=== PATIENT | female | born 2000 | race Caucasian/White ===

== ENCOUNTER 2022-09-28 13:40 | Emergency (ER) | payer SELFPAY ==
--- NOTE | ~2022-09-28 | CT_ITS ---
EXAMINATION: CTA chest PE protocol DATE: 09/28/2022 17:43 INDICATION: Midsternal chest pain. TECHNIQUE: Computed tomography angiography (CTA) of the chest was performed with 85 mL Omnipaque-350 intravenous contrast timed to evaluate the pulmonary arteries. Coronal maximum intensity projection 3 D-reconstructions were created by the technologist. Automated exposure control and iterative reconstr uction technique were employed. The dose-length product was 132.97 mGy-cm. COMPARISON: Chest 2 views 09/28/2022 FINDINGS: There is no pneumonia or pleural effusion. The heart size is normal. No pericardial effusio n. There is no pulmonary embolus. There are Schmorl's nodes in the mid thoracic spine. IMPRESSION: 1. No pulmonary embolus. Reviewed, dictated and finalized at location E. IMPRESSION: 1. No pulmonary embolus.
--- NOTE | ~2022-09-28 | XR_ITS ---
EXAMINATION: XR chest 2V DATE: 09/28/2022 14:08 INDICATION: Chest pain radiating into the neck TECHNIQUE: PA and lateral views of the chest were obtained. COMPARISON: None FINDINGS: The lungs are clear with no focal airspace opacities, pulmonary edema, pleural effusion or pneumothor ax. The cardiomediastinal silhouette is normal. Mild thoracic levocurvature. IMPRESSION: 1. No acute cardiopulmonary disease. Reviewed, dictated and finalized at location A.
[2022-09-28 13:50] VITALS: BP 110/66; PULSE 65; RESP 16; TEMP 36.6; O2SAT 99
--- NOTE | 2022-09-28 13:55 | ECG_ITS ---
Measurements Intervals [place] Rate: 53 P: 50 OK: 95 QRS: 59 QRSD: 86 T: 68 QT: 405 QTc: 382 Interpretive Statements SINUS BRADYCARDIA WITH SHORT OK INTERVAL NO PREVIOUS ECG AVAILABLE FOR COMPARISON Electronically Signed On 09-28-2022 16:03:48 CDT by Tomas Ingram M.D.
[2022-09-28 14:50] VITALS: BP 122/69; PULSE 63; PULSE 65; RESP 17; O2SAT 100
[2022-09-28 14:56] LABS: Basophils Absolute Auto 0.1 K/mm3 (0.0-0.1); Basophils Percent Auto 1.4 % (0.2-1.2); Eosinophils Absolute Auto 0.1 K/mm3 (0-0.3); Eosinophils Percent Auto 0.8 % (0-4.4); Hematocrit 42.6 % (37.0-47.0); Hemoglobin 14.3 g/dL (12.0-15.0); Immature Granulocyte Absolute 0.01 K/mm3 (0.00-0.031); Immature Granulocyte Percent A 0.2 % (0-0.5); Lymphocytes Absolute Auto 1.69 K/mm3 (0.9-3.2); Lymphocytes Percent Auto 26.5 % (18.3-44.2); Mean Corpuscular HGB Conc 33.6 g/dl (32-36); Mean Corpuscular Volume 95.3 fl (80-100); Mean Platelet Volume 11.4 fl (7.4-10.4); Monocytes Absolute Auto 0.5 K/mm3 (0.1-0.6); Monocytes Percent Auto 7.8 % (2.6-8.5); Neutrophils Percent Auto 63.3 % (45.5-73.1); Platelet Count Result 228 k/mm3 (150-375); Red Blood Count 4.47 M/mm3 (4.2-5.4); Red Cell Distribution Width 11.9 % (11.5-14.5); White Blood Count 6.4 K/mm3 (4.5-10.0)
[2022-09-28 15:06] LABS: INR 1.1; Prothrombin Time 14.2 Seconds (11.1-14.7)
[2022-09-28 15:07] LABS: Alanine Aminotransferase 16 U/L (6-35); Alkaline Phosphatase 64 U/L (38-126); Anion Gap 7 mmol/L (8-16); Aspartate Amino Transferase 26 U/L (14-36); Bilirubin,Total 0.5 mg/dL (0.2-1.3); Blood Urea Nitrogen 8 mg/dL (7-17); Calcium 9.3 mg/dL (8.4-10.2); Carbon Dioxide 27 mmol/L (22-30); Chloride 105 mmol/L (98-107); Estimated CRCL calculation 80 ml/min; Estimated Glomerular Filt Rate > 60; Glucose 92 mg/dL (65-110); Lipase 28 U/L (23-300); Partial Thromboplastin Time 30.5 SECONDS (22.3-36.8); Sodium 139 mmol/L (137-145)
[2022-09-28 15:18] LABS: Troponin I < 0.012 ng/mL (0.000-0.034)
--- NOTE | 2022-09-28 15:31 | ED.CHESTPAIN ---
HPI - Chest Pain General Chief Complaint: Chest Pain Stated Complaint: chest pain Time Seen by Provider: 09/28/22 14:46 History of Present Illness HPI narrative: 22-year-old female presented to the emergency department for evaluation of chest pain. Patient states she was at work this morning when she had onset of substernal chest pain that did radiate to her back. Patient states the pain was worsened with movement. Patient denies any prior history of coronary disease. Patient denies any personal history of pulmonary embolism. Patient states the pain was persistent for approximately 45 minutes and then resolved. Upon arrival to the ED patient states she is no longer having any chest pain. Patient denies any associated shortness of breath. Patient denies any leg swelling or tenderness. Related Data Allergies Allergy/AdvReac Type Severity Reaction Status Date / Time No Known Allergies Allergy Verified 09/28/22 14:51 Review of Systems Review of Systems: All systems reviewed & are unremarkable except as noted in HPI and below Exam Narrative: APPEARANCE: Well appearing, no pain, no distress, well-nourished. HEAD: normocephalic, atraumatic. EYES: PERRLA/EOMI, conjunctivae clear. NOSE: Normal no drainage NECK: Supple. No adenopathy, no masses. RESPIRATORY: Airway patent, respirations nonlabored. Clear to auscultation bilaterally, no rales, rhonchi, wheezing. CARDIOVASCULAR: Regular rate and rhythm without murmurs rubs or gallops. Reproducible sternal tenderness to palpation ABDOMINAL: Soft, nontender, nondistended, normal bowel sounds MUSCULOSKELETAL: Moves all extremities. Strength/ROM intact, No edema, No calf tenderness. NEURO: Alert. Cranial nerves II through XII intact. SKIN: Warm, dry. Normal Color Course Course Emergency Course: 22-year-old female presented the ED for evaluation of substernal chest pain. Patient is afebrile with no leukocytosis. Patient's CMP is similar to her baseline. Patient's troponin is negative lipase is negative. D-dimer is pending. Chest x-ray shows no acute cardiopulmonary abnormality. EKG shows normal sinus rhythm. Patient is delta troponin was negative. Patient's D-dimer was elevated at 0.62. CTA PE to rule out pulmonary embolism showed no evidence of PE. Patient remained pain-free in the emergency department. Patient and guest were updated on the results of the work-up. All question concerns were addressed. Patient was encouraged of close follow-up with her primary care physician. Vital Signs Vital signs: Vital Signs Temperature 98 F 09/28/22 13:50 Pulse Rate 65 09/28/22 13:50 Respiratory Rate 16 09/28/22 13:50 Blood Pressure 110/66 09/28/22 13:50 Pulse Oximetry 99 09/28/22 13:50 Oxygen Delivery Room Air 09/28/22 13:50 Temperature 98 F 09/28/22 13:50 Pulse Rate 67 09/28/22 17:56 Respiratory Rate 12 09/28/22 17:56 Blood Pressure 123/80 09/28/22 17:56 Pulse Oximetry 100 09/28/22 17:56 Oxygen Delivery Room Air 09/28/22 13:50 MDM - Chest Pain Differential Diagnosis Differential diagnosis: Likely pneumothorax, stable angina, atypical chest pain, costochondritis, chest pain and other (Pulmonary embolism, pneumonia) Lab Data Attestation: I reviewed the patient's lab results. 09/28/22 14:46 09/28/22 14:46 Labs: Lab Results 09/28/22 09/28/22 Range/Units 14:46 17:04 WBC 6.4 (4.5-10.0) K/mm3 RBC 4.47 (4.2-5.4) M/mm3 Hgb 14.3 (12.0-15.0) g/dL Hct 42.6 (37.0-47.0) % MCV 95.3 (80-100) fl MCH 32.0 (26-34) pg MCHC 33.6 (32-36) g/dl RDW 11.9 (11.5-14.5) % Plt Count 228 (150-375) k/mm3 MPV 11.4 H (7.4-10.4) fl Immature Gran % (Auto) 0.2 (0-0.5) % Neut % (Auto) 63.3 (45.5-73.1) % Lymph % (Auto) 26.5 (18.3-44.2) % [place] % (Auto) 7.8 (2.6-8.5) % Eos % (Auto) 0.8 (0-4.4) % Baso % (Auto) 1.4 H (0.2-1.2) % Lymph # (Auto) 1.69 (0.9-3.2)
[2022-09-28 16:13] VITALS: BP 109/60; PULSE 53; RESP 16; O2SAT 98
[2022-09-28 16:15] LABS: D Dimer 0.62 ug/mL (<0.48)
[2022-09-28 17:39] LABS: Troponin I < 0.012 ng/mL (0.000-0.034)
[2022-09-28 17:56] VITALS: BP 123/80; PULSE 67; RESP 12; O2SAT 100
== END 2022-09-28 18:26 | disposition home or self-care (01) ==
PROVIDERS: Emergency Provider Emergency Medicine
DX: R07.89 Other chest pain (principal); R00.1 Bradycardia, unspecified
CPT/HCPCS: 36415; 71046; 71275; 80053; 81025; 83690; 84484; 85025; 85380; 85610; 85730; 93005; 99284; Q9967